=== PATIENT | female | born 1930 | race Caucasian/White ===

== ENCOUNTER 2016-12-07 22:17 | Inpatient (IN) | payer MEDICARE, BC ==
--- NOTE | ~2016-12-07 | EKG ---
PATIENT: KORINA LIN UNIT #: [id number] Ventricular Rate: 61 BPM Atrial Rate: 61 BPM P-R Interval: 184 ms QRS Duration: 102 ms Q-T Interval: 456 ms QTC Calculation(Bezet): 459 ms P Brewster: 54 degrees Calculated R Brewster: -28 degrees Calculated T Brewster: 64 degrees Diagnosis Line: Normal sinus rhythm Diagnosis Line: Normal ECG Diagnosis Line: When compared with ECG of 21-APR-2015 08:18, Diagnosis Line: T wave inversion now evident in Anterior leads Diagnosis Line: Confirmed by SEBAS ONTIVEROS MD ([id number]) on 12/09/2016 Diagnosis Line: 9:55:48 AM INTERPRETING MD: WESTON ESCALANTE
--- NOTE | ~2016-12-07 | HM ---
Unit #: [id number] #: [id number] Patient: KORINA LIN [id number] [address] [place], [place] [address] [id number] I MR#: [id number] NAME: KORINA LIN. : 1930 SEX: F STUDY DATE/TIME: 12/16/2016 UNIT: C3A PCU ROOM: 301 STUDY DESCRIPTION: Holter Monitor Attending Physician: Vandana Maravilla M.D. Primary Care Physician: Mario Cadet M.D. CARDIOLOGY REPORT EXAM Holter monitor. INDICATIONS Syncope. SUMMARY Patient was monitored for 24 hours. Patient apparently wore the monitor for 24 hours, but only approximately 8 hours was evaluated. A total of 28,558 beats were analyzed. Average heart rate was 65 beats per minute, minimum heart rate 45 beats per minute at approximately 12 noon, and maximum heart rate 99 beats per minute at approximately 10:30 in the morning. There were no pauses. SUPRAVENTRICULAR ECTOPY: 69 isolated beats with no runs. VENTRICULAR ECTOPY: 102 isolated beats with no runs. SYMPTOMS None. NOTE: The Holter was removed for a MRI and not replaced. IMPRESSION Normal limited Holter without evidence for syncope. Dictated by... Quentin Beckham/paxton TD: 12/16/2016 10:17 JOB #: [id number] Unit #: [id number] #: [id number] Patient: KORINA LIN CARDIOLOGY REPORT Page 1 of 1 X Randy Allison MD HOLTER MONITOR REPORT
--- NOTE | ~2016-12-07 | DS ---
Unit #: [id number] #: [id number] Patient: KORINA LIN [id number] [address] [place], [place] [address] [id number] I MR#: [id number] NAME: KORINA LIN. ROOM: 301 Age: 86 Sex: F Admission Date: 12/09/2016 : 1930 Discharge Date: 12/12/2016 Attending Physician: Vandana Maravilla M.D. Primary Care Physician: Mario Cadet M.D. DISCHARGE SUMMARY REASON FOR ADMISSION Syncopal episode; weakness, profound; nausea, vomiting, and diarrhea. HISTORY OF PRESENT ILLNESS/HOSPITAL COURSE The patient is a very pleasant 86-year-old female who is a usual resident at a local assisted-living facility with prior history of hypertension, dementia, spinal stenosis, who was admitted secondary to syncopal episode while at the assisted-living facility. Please see History and Physical for complete details. Family members stated that patient initially had physical therapy prior to being placed in assisted living and she was otherwise doing well, however, over the past several weeks she began developing increased weakness and/or chronic immobility. She had a syncopal episode to which she does not recall. She was subsequently admitted for the same. Through her hospital course, the patient underwent a 2D echocardiogram showing ejection fraction of 55%, no acute process was noted. No evidence of heart failure. The patient also underwent ultrasound carotid bilaterally which did not show carotid stenosis. Patient also underwent MRI brain as well as CT head noncontrast, again showing no acute process. There was no acute CVA which was noted. Secondary to decreased immobility, as well as weakness, PT and OT services saw and evaluated patient and did recommend rehab at time of discharge prior to being discharged back to assisted living. Appropriate arrangements have been made for the patient to be transitioned to rehab. At time of discharge, patient's hemoglobin is 13.3. Creatinine level is 0.5. She does have chronic low sodium, at time of discharge today it is 129. Her B12 level also noted to be 349 through her hospital course and it was appropriately repleted while she was here and at time of discharge she should receive vitamin B12 IM injections on an every two week basis. That physician will be deferred to her primary care physician. The patient will be discharged to a rehab facility for ongoing care. Unit #: [id number] #: [id number] Patient: KORINA LIN FINAL DISCHARGE DIAGNOSES 1. Syncopal episode, likely secondary to autonomic dysfunction. 2. Chronic immobility syndrome. 3. Chronic spinal stenosis. 4. Weakness secondary to advanced age, autonomic dysfunction. 5. Status post fall at assisted living. 6. Ibraydma-mi-fqnnrt dementia. 7. Chronic hyponatremia. 8. L1/T12 compression fractures with kyphoplasty in past. 9. Hyperlipidemia. 10. Hypertension. 11. Hypothyroidism. 12. Chronic osteoarthritis. FINAL DISCHARGE MEDICATIONS 1. Tylenol 650 mg p.o. q.6 h. p.r.n. 2. Norvasc 5 mg p.o. daily. 3. Lopressor 25 mg p.o. b.i.d. 4. Aricept 23 mg p.o. daily. 5. Livalo 0.5 mg p.o. daily. 6. [place] 5/325 one tablet p.o. q.8 h. p.r.n. 7. Synthroid 88 mcg p.o. daily. CONDITION ON DISCHARGE Stable. DISCHARGE DISPOSITION Rehab. Dictated by... Quentin Suresh/akhil TD: 12/12/2016 12:29 JOB #: [id number] DISCHARGE SUMMARY Page 1 of 1 X Vandana Maravilla MD X DISCHARGE SUMMARY
--- NOTE | ~2016-12-07 | MR18 ---
[facility] A Service of [facility] RADIOLOGY TEXT RESULTS PATIENT: KORINA LIN LOCATION: [facility] : 30 UNIT #: [id number] AGE: [address]: Vandana Maravilla MD SEX: F ORDER DR: [id number] [facility] [address] [facility]. [place], [place] [address] [id number] I MR#: [id number] Acc #: [id number] NAME: KORINA LIN. : 1930 SEX: F STUDY DATE/TIME: 12/08/2016 17:04 UNIT: [address] ROOM: [facility] STUDY DESCRIPTION: MR Brain Wo Contrast Attending Physician: Vandana Maravilla M.D. Ordering Physician: Vandana Maravilla M.D. Primary Care Physician: Mario Cadet M.D. MRI CENTER REPORT This report is preliminary unless electronic signature is present. EXAM Brain MRI without contrast 12/08/2016 COMPARISON Prior MRI 05/07/2015 TECHNIQUE Routine unenhanced brain MRI. HISTORY Recent fall 2-3 days ago, fell and struck left face with left facial bruising. Possible syncope. FINDINGS There is no MR evidence of acute ischemia or other restricted diffusion. There is volume loss and extensive fairly symmetric chronic white matter change but no hemorrhage or hydrocephalus or extraaxial fluid collection. Normal flow voids are seen in the cerebral vessels. There is left facial and frontal scalp soft tissue swelling but again, no evidence of any intracranial acute abnormality. IMPRESSION Extracranial soft tissue swelling but no evidence of acute intracranial injury. Moderate chronic small vessel change but not substantially different than seen in May 2015. Dictated by... Mayo Thakkar M.D. THIS IS AN ELECTRONICALLY VERIFIED REPORT Mayo Thakkar M.D. at 12/10/2016 3:58 PM TEV/pcl [facility] A Service of [facility] RADIOLOGY TEXT RESULTS PATIENT: KORINA LIN LOCATION: [facility] : 30 UNIT #: [id number] AGE: [address]: Vandana Maravilla MD SEX: F ORDER DR: TD: 12/08/2016 21:38 JOB #: [id number] MRI CENTER REPORT Page 1 of 1 COPY
--- NOTE | ~2016-12-07 | CR72 ---
[facility] A Service of [facility] RADIOLOGY TEXT RESULTS PATIENT: KORINA LIN LOCATION: [facility] 301-01 : 30 UNIT #: [id number] AGE: [address]: Vandana Maravilla MD SEX: F ORDER DR: [id number] [facility] [address] [place], [place] [address] [id number] I MR#: [id number] Acc #: [id number] NAME: KORINA LIN. : 1930 SEX: F STUDY DATE/TIME: 12/08/2016 0:42 UNIT: CEDOF ROOM: 67761 STUDY DESCRIPTION: CR Chest Single View Portable Attending Physician: Charito Montoya M.D. Ordering Physician: Angi Batista M.D. Primary Care Physician: Mario Cadet M.D. MEDICAL IMAGING REPORT This report is preliminary unless electronic signature is present EXAM Portable chest HISTORY Status post fall, shortness of air fell tonight. COMPARISON 04/21/2015 FINDINGS Portable view of the chest demonstrates coarse parenchymal markings suggesting underlying fibrosis. No acute airspace disease or consolidation no effusions. Heart, mediastinum unremarkable except for mild aortic atherosclerotic changes. Density seen at the L1 vertebral level compatible with prior kyphoplasty. Overall no acute findings. Dictated by... Willie Goel M.D. THIS IS AN ELECTRONICALLY VERIFIED REPORT Willie Goel M.D. at 12/09/2016 10:34 PM NASEEM/savanah TD: 12/08/2016 07:05 JOB #: [id number] MEDICAL IMAGING REPORT Page 1 of 1 COPY
--- NOTE | ~2016-12-07 | CT71 ---
[facility] A Service of [facility] RADIOLOGY TEXT RESULTS PATIENT: KORINA LIN LOCATION: C3A 301 : 30 UNIT #: [id number] AGE: [address]: Vandana Maravilla MD SEX: F ORDER DR: [id number] [facility] [address]. [place], [place] [address] [id number] I MR#: [id number] Acc #: [id number] NAME: KORINA LIN. : 1930 SEX: F STUDY DATE/TIME: 12/08/2016 0:31 UNIT: CEDOF ROOM: 92176 STUDY DESCRIPTION: CT Head Wo Contrast Attending Physician: Charito Montoya M.D. Ordering Physician: Angi Batista M.D. Primary Care Physician: Mario Cadet M.D. MEDICAL IMAGING REPORT This report is preliminary unless electronic signature is present EXAM Noncontrast head CT HISTORY 86-year-old female fell with laceration above left eye last night, syncopal episode. COMPARISON 05/07/2015. TECHNIQUE Axial images performed through the brain without contrast. This CT examination was performed with one or more of the following radiation dose reduction techniques: automatic exposure control, adjustment of mA and/or kV according to patient size, and iterative reconstruction. FINDINGS Exam demonstrates generalized atrophy. Most likely related to advanced age. No intracranial mass or hemorrhage. No mass effect or midline shift. Sizeable left frontal scalp hematoma. No fracture identified. Skull base and mastoids unremarkable. IMPRESSION 1. No acute intracranial abnormality identified. 2. Sizable left frontal scalp hematoma. No evidence of skull fracture. Dictated by... Willie Goel M.D. THIS IS AN ELECTRONICALLY VERIFIED REPORT Willie Goel M.D. at 12/09/2016 10:34 PM JMS/werners [facility] A Service of [facility] RADIOLOGY TEXT RESULTS PATIENT: KORINA LIN LOCATION: C3A 301- : 30 UNIT #: [id number] AGE: [address]: Vandana Maravilla MD SEX: F ORDER DR: TD: 12/08/2016 07:00 JOB #: [id number] MEDICAL IMAGING REPORT Page 1 of 1 COPY
--- NOTE | ~2016-12-07 | HP ---
Unit #: [id number] #: [id number] Patient: KORINA LIN [id number] [address] [place], [place] [address] [id number] I MR#: [id number] NAME: KORINA LIN. ROOM: 72562 Age: 86 Sex: F Admission Date: 12/08/2016 : 1930 Attending Physician: Charito Montoya M.D. Primary Care Physician: Mario Cadet M.D. HISTORY AND PHYSICAL CHIEF COMPLAINT Fall versus syncope with weakness, nausea, vomiting, and diarrhea. HISTORY This pleasant 86-year-old female with hypertension, dementia, spinal stenosis, is admitted after a fall versus syncope. The patient states that she found herself on the bathroom floor last evening with a bump over her left forehead. She was brought to this emergency department where she required Dermabond to the left forehead for a left forehead laceration. She really does not remember what occurred prior to her fall versus syncope. Her workup thus far is fairly unremarkable except for chronic hyponatremia. The patient lives in assisted living environment. Family states that she has become weaker recently, some recent rhinorrhea, diarrhea for the past couple of days along with nausea and vomiting. PAST MEDICAL HISTORY 1. Admission 2014 for syncope. Echo showed an ejection fraction greater than 55%, Lexiscan Cardiolite was negative. 2. L1 and T12 compression fractures requiring kyphoplasty. 3. Spinal stenosis. 4. Hyperlipidemia. 5. Hypertension. 6. Hypothyroidism. 7. Chronic hyponatremia. 8. Meningioma. 9. Dementia. 10. DJD. 11. Appendectomy. 12. Foot surgery. 13. Hand surgery. ALLERGIES Robaxin, Indocin, Naprosyn, Zocor, Voltaren, Lipitor, Evista. HOME MEDICATIONS Norvasc 5 mg daily; calcium plus D 600/400 mg daily; Aricept ER 23 mg daily; fish oil 1,000 mg daily; ibuprofen 300 mg b.i.d.; Synthroid 0.088 mg daily; Lopressor 25 mg b.i.d.; vitamin C 500 mg daily. FAMILY HISTORY Noncontributory given patient's age. Unit #: [id number] #: [id number] Patient: KORINA LIN SOCIAL HISTORY The patient lives alone in assisted living. Remote history of tobacco use. She drinks one or two beers on a nightly basis. REVIEW OF SYSTEMS Difficult to obtain due to patient's memory issues. PHYSICAL EXAMINATION GENERAL: Pleasant ill appearing 86-year-old female currently in no acute distress. VITAL SIGNS: Temperature 97.6, pulse 75, respirations 25, blood pressure 141/73, O2 saturation is 97% on room air. HEENT: Eyes - PERRLA, extraocular muscles are intact. Patient has bruise and swelling over the left forehead, just lateral to the left eye with laceration, which was Dermabonded in the ER. Her pharynx is benign. NECK: Supple without adenopathy or thyromegaly. TMs revealed cerumen bilaterally. CHEST: Clear. CARDIAC: Normal S1 and S2 with a very soft systolic murmur best heard at the upper sternal border. ABDOMEN: Bowel sounds are present. No hepatosplenomegaly, tenderness or masses. EXTREMITIES: Without edema. Pedal pulses are present. NEUROLOGIC: Patient is awake, alert. She is a bit confused. Cranial nerves are intact except that she is hard of hearing. She has very good strength throughout, except her left leg is a little bit weaker than her right. Negative pronator drift. Normal finger to nose. She is able to sit up without assistance, but does need assistance to ambulate. DIAGNOSTIC STUDIES LABS: Hematocrit 38.3, white blood count is 12, normal platelet count. SMA 12 - glucose 130, sodium 129, which is fairly stable, chloride is 96. Cardiac markers are negative. Urinalysis - trace leukocyte esterase, 5-10 red cells, no white cells, 1+ bacteria noted. CARDIOLOGY STUDIES: EKG - normal sinus rhythm, rate 60 and fairly normal appearing. IMAGING STUDIES: Chest x-ray - some fibrosis but no acute disease. CT scan of the C-spine no acute disease, multilevel DJD, worse at C5-[address] Head CT - no acute disease, left frontal hematoma. ASSESSMENT 1. Fall versus syncope with left forehead laceration and hematoma which was Dermabonded in the ER. 2. Admission for syncope 2014. Negative cardiac workup. 3. Recent nausea, vomiting, and diarrhea. 4. 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 5. Increasing weakness. 6. Spinal stenosis. 7. Hypertension. 8. Dementia. 9. Hypothyroidism. PLANS Unit #: [id number] #: [id number] Patient: KORINA LIN 1. Check orthostatics, IV fluids, give Zofran. 2. Holter monitor. 3. Physical therapy to see. 4. SCDs for DVT prophylaxis. 5. Check urine sodium and TSH. 6. Recheck labs in the morning. 7. Hold Ibuprofen for now. Dictated by Charito Montoya M.D. AML/ts TD: 12/08/2016 05:04 JOB #: [id number] HISTORY AND PHYSICAL Page 1 of 1 X Charito Montoya MD X HISTORY AND PHYSICAL
--- NOTE | ~2016-12-07 | US37 ---
[facility] A Service of [facility] RADIOLOGY TEXT RESULTS PATIENT: KORINA LIN LOCATION: [facility] 301- : 30 UNIT #: [id number] AGE: [address]: Vandana Maravilla MD SEX: F ORDER DR: [id number] [facility] [address] [facility] [place], [place] [address] [id number] I MR#: [id number] Acc #: [id number] NAME: KORINA LIN. : 1930 SEX: F STUDY DATE/TIME: 12/08/2016 14:37 UNIT: [address] ROOM: [facility] STUDY DESCRIPTION: US Carotid W/Doppler Bilateral Attending Physician: Vandana Maravilla M.D. Ordering Physician: Vandana Maravilla M.D. Primary Care Physician: Mario Cadet M.D. MEDICAL IMAGING REPORT This report is preliminary unless electronic signature is present DATE OF EXAM 12/08/2016 REASON FOR EXAM Syncope. EXAM Bilateral carotid Doppler. FINDINGS The right common carotid, internal carotid, and external carotid arteries are patent with mild diffuse plaque throughout. Velocity of the common carotid artery is 62 cm/sec. Peak systolic velocity of the right proximal internal carotid artery is 57 cm/sec with an end diastolic velocity of 14 cm/sec for an ICA:CCA ratio of 0.9. External carotid artery velocity of 95 cm/sec. The vertebral artery is visualized with antegrade flow. The left common carotid, internal carotid and external carotid arteries are patent with mild diffuse plaque throughout. Velocity of the common carotid artery is 64 cm/sec. Peak systolic velocity of the left proximal internal carotid artery is 43 cm/sec with an end diastolic velocity of 12 cm/sec for an ICA:CCA ratio of 0.67. External carotid artery velocity of 104 cm/sec. The vertebral artery are visualized with antegrade flow. IMPRESSION 1. Less than 50% stenosis of the right and left internal carotid arteries. 2. No stenosis of the external carotid arteries. 3. Antegrade flow of the vertebral arteries. [facility] A Service of [facility] RADIOLOGY TEXT RESULTS PATIENT: KORINA LIN LOCATION: [facility] 301-01 : 30 UNIT #: [id number] AGE: [address]: Vandana Maravilla MD SEX: F ORDER DR: Dictated by... Arabella Donaldson M.D. THIS IS AN ELECTRONICALLY VERIFIED REPORT Arabella Donaldson M.D. at 12/10/2016 2:55 PM REMAN/sen TD: 12/08/2016 16:58 JOB #: [id number] MEDICAL IMAGING REPORT Page 1 of 1 COPY
--- NOTE | ~2016-12-07 | CT52 ---
[facility] A Service of [facility] RADIOLOGY TEXT RESULTS PATIENT: KORINA LIN LOCATION: A 301-01 : 30 UNIT #: [id number] AGE: [address]: Vandana Maravilla MD SEX: F ORDER DR: [id number] [facility] [address] [place], [place] [address] [id number] I MR#: [id number] Acc #: [id number] NAME: KORINA LIN. : 1930 SEX: F STUDY DATE/TIME: 12/08/2016 0:35 UNIT: CEDOF ROOM: [address] STUDY DESCRIPTION: CT Cervical Spine Wo Cont Attending Physician: Charito Montoya M.D. Ordering Physician: Angi Batista M.D. Primary Care Physician: Mario Cadet M.D. MEDICAL IMAGING REPORT This report is preliminary unless electronic signature is present EXAM CT cervical spine without contrast HISTORY Fell. Laceration above left eye fell last night syncopal episode. Head and neck pain weakness. TECHNIQUE This CT exam was performed with one or more of the following radiation dose reduction techniques: automatic control, adjustment of mA and/or kV according to patient size, and iterative reconstruction. FINDINGS Thin section axial images performed through the cervical spine without contrast. Multiplanar reconstructed images reviewed at a workstation. No acute fracture or malalignment. Extensive chondrocalcinosis at the atlantoaxial joint probably degenerative in nature. Moderate C5-6 degenerative disc disease with a spinal and foraminal stenosis. Ossifications also seen within the posterior ligaments at the C5-6 level which may contribute to stenosis. Extensive arterial vascular calcifications within the carotids bilaterally. Apical pleural thickening noted right lung apex. IMPRESSION No acute findings. Multilevel degenerative disc disease most pronounced C5-6 with spinal and foraminal stenosis. Dictated by... Willie Goel M.D. THIS IS AN ELECTRONICALLY VERIFIED REPORT Willie Goel M.D. at 12/09/2016 10:34 PM JMS/rnr [facility] A Service of [facility] RADIOLOGY TEXT RESULTS PATIENT: KORINA LIN LOCATION: [facility] 301-01 : 30 UNIT #: [id number] AGE: [address]: Vandana Maravilla MD SEX: F ORDER DR: TD: 12/08/2016 07:01 JOB #: [id number] MEDICAL IMAGING REPORT Page 1 of 1 COPY
[~2016-12-07 22:17] MED LIST: ACETAMINOPHEN650 M1 PO; AMLODIPINE BESYL5 MG PO; ANEXSIA 5/325 M1 TA1 PO; CALCIUM 600 +1 EA11 PO; FISH OIL 1,0001 EAC3 PO; HYDROCODONE BITA5 GM PO; LEVOTHYROXINE88 MCG PO; LIVALO2 MG PO; METOPROLOL TART25 MG PO; MOTRIN600 MG PO; OMEGA 3 FISH1 CAP.EC PO; VITAMIN C500 M1 PO
[2016-12-08 01:26] LABS: URINE SOURCE CLEAN CATCH
[2016-12-08 01:32] LABS: BASOPHIL# 0.1 X10e3 (0-0.3); BASOPHIL% 0.5 % (0-2.5); EOSINOPHIL% 0.1 % (0.0-7.0); HEMATOCRIT 38.3 % (35.0-45.0); HEMOGLOBIN 12.7 gm/dL (12.0-16.0); LYMPHOCYTE# 1.1 X10e3 (1.0-3.5); MEAN CELL VOLUME 93.8 FL (83-96); MEAN CORPUSCULAR HEMOGLOBIN 31.1 PG (28-34); MEAN CORPUSCULAR HGB CONC 33.2 g/dL (30-36); MEAN PLATELET VOLUME 7.5 FL (6.5-11.5); MONOCYTE# 0.7 X10e3 (0-1.0); NEUTROPHIL# 10.2 X10e3 (1.5-7.1); NEUTROPHIL% 84.4 % (40-75); PLATELET COUNT 258 X10e3 (140-420); RED BLOOD COUNT 4.08 X10e (3.90-5.30); RED CELL DISTRIBUTION WIDTH 12.8 % (11.0-15.5)
[2016-12-08 01:34] LABS: DIFF IND NO
[2016-12-08 01:36] LABS: URINE APPEARANCE TURBID; URINE BILIRUBIN NEG (NEG); URINE BLOOD NEG (NEG); URINE COLOR YELLOW; URINE GLUCOSE NEG (NEG); URINE KETONE NEG (NEG); URINE LEUKOCYTE ESTERASE TRACE (NEG); URINE NITRATE NEG (NEG); URINE PH 8.5 (5-8); URINE PROTEIN 2+ (NEG); URINE SPECIFIC GRAVITY 1.013 (1.003-1.035)
[2016-12-08 01:39] LABS: CULTURE INDICATED? YES; URINE BACTERIA AUWI 1+ (NEGATIVE); URINE SQUAMOUS EPITHELIAL CELL MOD /[HPF]
[2016-12-08 01:44] LABS: POC - CKMB 2.9 ng/mL (0.0-7.9); POC - TROPONIN <0.05 ng/mL (<=0.05)
[2016-12-08 01:49] LABS: URINE AMORPHOUS SEDIMENT AMORP PHOSPHATES
[2016-12-08 01:59] LABS: ALBUMIN SERUM 4.3 g/dL (3.5-5.0); BILIRUBIN, DIRECT 0.1 mg/dL (0.0-0.2); BILIRUBIN,INDIRECT 0.4 mg/dL (0.0-0.9); BILIRUBIN,TOTAL 0.5 mg/dL (0.2-2.0); CALCIUM SERUM 9.1 mg/dL (8.4-10.2); CREATININE SERUM 0.5 mg/dL (0.6-1.4); GLOM FILT RATE Estimated 87.6 mL/min (>60); MAGNESIUM 1.8 mg/dL (1.6-3.0); POTASSIUM 3.9 mmol/L (3.5-5.1); PROTEIN TOTAL SERUM 7.1 g/dL (6.0-8.3)
[2016-12-08 09:01] LABS: BASOPHIL# 0.1 X10e3 (0-0.3); BASOPHIL% 0.6 % (0-2.5); EOSINOPHIL# 0.1 X10e3 (0-0.7); EOSINOPHIL% 0.9 % (0.0-7.0); HEMATOCRIT 36.9 % (35.0-45.0); HEMOGLOBIN 12.3 gm/dL (12.0-16.0); LYMPHOCYTE# 1.4 X10e3 (1.0-3.5); LYMPHOCYTE% 16.3 % (17.0-45.0); MEAN CELL VOLUME 94.9 FL (83-96); MEAN CORPUSCULAR HEMOGLOBIN 31.7 PG (28-34); MEAN CORPUSCULAR HGB CONC 33.4 g/dL (30-36); MEAN PLATELET VOLUME 7.9 FL (6.5-11.5); MONOCYTE# 0.7 X10e3 (0-1.0); MONOCYTE% 8.7 % (3.0-12.0); NEUTROPHIL# 6.2 X10e3 (1.5-7.1); NEUTROPHIL% 73.5 % (40-75); PLATELET COUNT 236 X10e3 (140-420); RED BLOOD COUNT 3.89 X10e (3.90-5.30); WHITE BLOOD COUNT 8.4 X10e3 (4.0-10.5)
[2016-12-08 09:06] LABS: DIFF IND NO
[2016-12-08 09:38] LABS: CALCIUM SERUM 8.9 mg/dL (8.4-10.2); CREATININE SERUM 0.5 mg/dL (0.6-1.4); GLOM FILT RATE Estimated 87.6 mL/min (>60); POTASSIUM 4.1 mmol/L (3.5-5.1)
[2016-12-08 09:56] LABS: %MB 5.2 % (0.0-4.0); MB 4.5 ng/ml
[2016-12-09 04:31] LABS: HEMATOCRIT 37.5 % (35.0-45.0); HEMOGLOBIN 12.4 gm/dL (12.0-16.0); MEAN CELL VOLUME 94.9 FL (83-96); MEAN CORPUSCULAR HEMOGLOBIN 31.3 PG (28-34); MEAN PLATELET VOLUME 7.8 FL (6.5-11.5); RED BLOOD COUNT 3.95 X10e (3.90-5.30); RED CELL DISTRIBUTION WIDTH 12.8 % (11.0-15.5)
[2016-12-09 04:59] LABS: ALBUMIN SERUM 3.6 g/dL (3.5-5.0); BILIRUBIN,TOTAL 0.9 mg/dL (0.2-2.0); CREATININE SERUM 0.5 mg/dL (0.6-1.4); GLOM FILT RATE Estimated 87.6 mL/min (>60); POTASSIUM 4.3 mmol/L (3.5-5.1); PROTEIN TOTAL SERUM 5.9 g/dL (6.0-8.3)
[2016-12-12 07:32] LABS: HEMATOCRIT 40.3 % (35.0-45.0); HEMOGLOBIN 13.3 gm/dL (12.0-16.0); MEAN CORPUSCULAR HEMOGLOBIN 31.3 PG (28-34); MEAN CORPUSCULAR HGB CONC 32.9 g/dL (30-36); MEAN PLATELET VOLUME 7.9 FL (6.5-11.5); RED BLOOD COUNT 4.24 X10e (3.90-5.30); WHITE BLOOD COUNT 7.4 X10e3 (4.0-10.5)
[2016-12-12 07:59] LABS: ALBUMIN SERUM 3.7 g/dL (3.5-5.0); CALCIUM SERUM 9.1 mg/dL (8.4-10.2); CREATININE SERUM 0.5 mg/dL (0.6-1.4); GLOM FILT RATE Estimated 87.6 mL/min (>60); POTASSIUM 4.3 mmol/L (3.5-5.1); PROTEIN TOTAL SERUM 6.6 g/dL (6.0-8.3)
[2016-12-12] MEDS ORDERED: NORVASC PO (11:59)
[2016-12-12] MEDS ORDERED: LOPRESSOR PO (12:00)
[2016-12-12] MEDS ORDERED: ARICEPT23 MG PO (12:01)
== END 2016-12-12 14:47 | DRG 312 ==
LOC: CED 22:17 → C3A PCU 12-08 03:35 → CED 12-08 03:35 → CEDOF 12-08 03:35 → CED 12-08 03:47 → CEDOF 12-08 07:20 → C3A PCU 12-08 08:51 → CEDOF 12-09 09:30 → C3A PCU 12-09 09:30
PROVIDERS: Family Medicine; Internal Medicine; Student in an Organized Health Care Education/Training Program
DX: R55 Syncope and collapse (principal); F03.90 Unspecified dementia, unspecified severity, without behavioral disturbance, psychotic disturbance, mood disturbance, and anxiety; E22.2 Syndrome of inappropriate secretion of antidiuretic hormone; S01.81XA Laceration without foreign body of other part of head, initial encounter; S00.83XA Contusion of other part of head, initial encounter; I10 Essential (primary) hypertension; E78.5 Hyperlipidemia, unspecified; E03.9 Hypothyroidism, unspecified; M19.90 Unspecified osteoarthritis, unspecified site; M48.02 Spinal stenosis, cervical region; R53.1 Weakness; W18.30XA Fall on same level, unspecified, initial encounter; M62.3 Immobility syndrome (paraplegic)
CPT/HCPCS: 12011; 36415; 70450; 70551; 71010; 72125; 80048; 80053; 80061; 80076; 81003; 82550; 82553; 82607; 83735; 84300; 84443; 84484; 85025; 85027; 87086; 92526; 92610; 93005; 93225; 93226; 93306; 93880; 97110; 97116; 97161; 97166; 97530; 97535; 99285; G8978-GP; G8979-GP; G8987-GO; G8988-GO; G8996-GN; G8997-GN; G8998-GN; J3420